=== PATIENT | male | born 1960 | race Two or more races ===

== ENCOUNTER 2020-04-13 06:17 | Outpatient (REF) | payer BC, SELFPAY ==
[2020-04-13 11:33] LABS: Hematocrit 44.1 % (42-52); Hemoglobin 14.5 g/dl (14.0-18.0); Mean Corpuscular HGB Conc 32.9 g/dl (31.0-36.0); Mean Corpuscular Hemoglobin 31.7 pg (27.0-33.0); Mean Corpuscular Volume 96.5 fL (80-98); Mean Platelet Volume 10.7 fL (9.4-12.4); Platelet Count 237 X10*3/uL (160-400); Red Blood Count 4.57 X10*6/uL (4.60-5.80); Red Cell Distribution Width 12.3 % (11.0-16.0); White Blood Count 6.3 X10*3/uL (4.8-10.8)
[2020-04-13 11:40] LABS: Glucose Urine UA NEG (NEG); Leukocyte Esterase Urine NEG (NEG); Nitrite Urine NEG (NEG); Specific Gravity - Urine 1.025 (1.005-1.025); Urine Blood NEG (NEG); Urine Ketones NEG (NEG); Urine Protein NEG (NEG-TRACE)
[2020-04-13 11:50] LABS: Alanine Aminotransferase 11 U/L (0-40); Albumin Level 4.4 g/dL (3.5-5.0); Alkaline Phosphatase 62 U/L (39-117); Anion Gap 12 (12-20); Aspartate Amino Transferase 27 U/L (5-37); Bilirubin Total 0.8 mg/dL (0.0-1.0); Blood Urea Nitrogen 18 mg/dL (9-16); Calcium 8.6 mg/dL (8.4-10.2); Carbon Dioxide 30 mmol/L (22-29); Chloride 103 mmol/L (96-108); Cholesterol 224 mg/dL; Estimated Glomerular Filt Rate > 60; Glucose Fasting 105 mg/dL (60-99); HDL Cholesterol 53 mg/dL; LDL Cholesterol Calculated 157 mg/dl; Potassium 4.7 mmol/L (3.3-5.1); Sodium 140 mmol/L (135-145); Total Protein 7.3 g/dL (6.5-8.0); Triglycerides 73 mg/dL
[2020-04-13 11:57] LABS: Appearance Urine CLEAR; Color Urine YELLOW
[2020-04-13 12:06] LABS: RBC Urine 0 /HPF (0); WBC Urine 0 /HPF (0-4)
[2020-04-13 12:12] LABS: Prostate Specific Antigen Scr 0.56 ng/mL (<0.05-4.0)
== END 2020-04-13 06:18 | disposition home or self-care (01) ==
LOC: HO.HMGCLDS 06:17
PROVIDERS: PCP Internal Medicine; Visit Provider Internal Medicine
DX: Z00.00 Encounter for general adult medical examination without abnormal findings (principal); Z13.220 Encounter for screening for lipoid disorders; Z12.5 Encounter for screening for malignant neoplasm of prostate
CPT/HCPCS: 36415; 80053; 80061; 81001; 84153; 85027

== ENCOUNTER → 2021-03-08 09:00 | Outpatient (BNVA) | payer OTHER, SELFPAY | PROVIDERS: PCP Internal Medicine; Referring Provider Internal Medicine; Visit Provider Physician Assistant ==

== ENCOUNTER 2021-06-28 11:18 | Day surgery (SDC) | payer OTHER, SELFPAY ==
--- NOTE | 2021-06-27 10:29 | HO.ANESPROP2 ---
Documented by User: Ella Lr NP 06/27/21 10:30 HPI - Anesthesia Eval Consult details Narrative: 60yo M for Colonoscopy [facility] Active Problems Active Problems: All Active Problems (Updated 05/06/21 @ 12:25 by Rebecca Benson, RN) Family history of colon cancer requiring screening colonoscopy (Acute) Acid reflux (Acute) Sleep apnea (Acute) Hyperlipidemia (Acute) Normal colonoscopy (Acute) Annual physical exam (Acute) Past Medical History Medical History (Updated 05/06/21 @ 12:25 by Rebecca Benson, RN) Hyperlipidemia Normal colonoscopy Sleep apnea Family History Family History Father Liver cancer Colon cancer Mother Alzheimer's dementia Brother History of CVA (cerebrovascular accident) Brother No problems noted. Brother No problems noted. Brother No problems noted. Sister No problems noted. Son No problems noted. Son No problems noted. Son No problems noted. Daughter No problems noted. Surgical History Surgical History (Updated 05/06/21 @ 12:25 by Rebecca Benson RN) History of knee surgery Hx of colonoscopy Social History Social History Housing: House Alcohol intake: current Alcohol intake frequency: holidays/special occasions only Patient Tobacco Use Status: Never used Tobacco e-Cigarette/Vaping Use: Never Used Second Hand Smoke Exposure: No Use of substances other than those prescribed or required for medical reasons: No Are you DNR?: No Advance Directives: No Advance Directives Information Provided: Yes Advance Directives on File: No Current occupational status: employed Meds Allergies Allergy/AdvReac Type Severity Reaction Status Date / Time No Known Allergies Allergy Verified 06/22/21 15:45 Exam Exam Date and Time: June 27, 2021 1030 Assessment and Plan Assessment Anesthesia Assessment: Chart Reviewed Documented by User: Robert Cortez MD 06/28/21 14:09 [facility] Past Medical History Medical History (Updated 05/06/21 @ 12:25 by Rebecca Benson RN) Hyperlipidemia Normal colonoscopy Sleep apnea Family History Family History Father Liver cancer Colon cancer Mother Alzheimer's dementia Brother History of CVA (cerebrovascular accident) Brother No problems noted. Brother No problems noted. Brother No problems noted. Sister No problems noted. Son No problems noted. Son No problems noted. Son No problems noted. Daughter No problems noted. Family history of problems with anesthesia: No Surgical History Surgical History (Updated 05/06/21 @ 12:25 by Rebecca Benson RN) History of knee surgery Hx of colonoscopy Social History Social History Housing: House Alcohol intake: current Alcohol intake frequency: holidays/special occasions only Patient Tobacco Use Status: Never used Tobacco e-Cigarette/Vaping Use: Never Used Second Hand Smoke Exposure: No Use of substances other than those prescribed or required for medical reasons: No Are you DNR?: No Advance Directives: No Advance Directives Information Provided: Yes Advance Directives on File: No Current occupational status: employed Meds Allergies Allergy/AdvReac Type Severity Reaction Status Date / Time No Known Allergies Allergy Verified 06/22/21 15:45 Exam Airway Mallampati Class: II TM Dist: >3cm Neck ROM: Full Loose/Missing/Broken Teeth: Yes Assessment and Plan Assessment Anesthesia Assessment: Anesthesia Plan Discussed Final Anesthetic Review Family History of Problems with Anesthesia: No NPO: Yes ASA Class: I Final Preanesthetic Review: No Changes in Pt Med Stat, Meds/Allgs Chart Reviewed, Consent Obtained/Reviewed and Anes Risks/Benef Reviewed Patient Risk: Low Procedure Risk: Low Anesthetic Plan Anesthetic Plan: MAC: Disposition: Standard PACU
[2021-06-28 11:34] VITALS: BMI 28.0
--- NOTE | 2021-06-28 11:44 | MHC.SHP ---
Pre-Procedural Eval Section A Date of Service: 06/28/21 Section B Chief Complaint: Family history of malignant neoplasm Details of Present Illness: dad with CRC Relevant Family History (Specify if Yes): Yes Relevant Social History: None Present Medications: see Short Stay Collaborative assessment Medical History: Significant History (Hyperlipidemia Normal colonoscopy Sleep apnea) History of Previous Operations: No relevant previous surgery Allergies: Allergies Allergy/AdvReac Type Severity Reaction Status Date / Time No Known Allergies Allergy Verified 06/22/21 15:45 Review of Systems Sugical H&P ROS: Negative: Constitution, Cardiovascular, Respiratory, Neurological, Psychiatric, Hem-Onc, Allergic/Immunologic, Gastrointestinal, Genitourinary, Musculoskeletal, Integumentary, Endocrine and Eyes/Ears/Nose/Throat Exam Surgical H&P Exam: Normal: HEENT, Normal: Heart, Normal: Lungs, Normal: Extremities, Normal: Abdomen, Normal: Skin and Normal: Neurological Plan Diagnosis/Plan: Unchanged I have reviewed the history and physical and performed a pertinent physical examination on my patient. No changes have occurred unless specified.
[2021-06-28 11:56] VITALS: BP 138/82; PULSE 73; RESP 16; TEMP 36.4; O2SAT 96
[2021-06-28] MEDS: Lactated Ringers 1,000 ML 100 ML IVCONT (11:57)
--- NOTE | 2021-06-28 13:14 | PM.OP ---
Brief Operative Note Date of Service: 06/28/21 Pre-op diagnosis: colon screening, high risk, Fh of CRC Post-op diagnosis: same Procedure: see op note Surgeon: Oneal Sterling MD Anesthesia: MAC Was an Junior Recruiter used for this Procedure?: No Estimated blood loss (mL): 0 Condition: stable Disposition: PACU
--- NOTE | 2021-06-28 13:16 | W.PM.OPN ---
Operative Note Operative Note Date of Service: 06/28/21 Narrative: Operative Information Procedure Description: Colonoscopy Indication: colon screening, high risk, Fh of CRC Anesthesia: MAC COLONOSCOPY Instrument: Olympus variable stiffness pediatric scope 190L Colonoscopy Monitoring: Vital signs and clinical assessment, continuous EKG monitoring, Pulse oximetry, Carbon Dioxide monitoring and blood pressure monitoring were done throughout the procedure. Colon withdrawal time was 11 minutes. Procedure: The patient was placed in the left lateral decubitis position and pre-procedure medications were administered. After a digital rectal examination of the ano-rectum, the video colonoscope was inserted into the rectum and advanced through the colon to the cecum/TI. The colonoscope was slowly withdrawn in a retrograde panoramic fashion and the colon mucosa was carefully examined including a retroflexed view of the rectum. Findings and interventions are described below. Procedure Difficulty: easy Findings: Terminal Ileum-normal right sided retroflexion- normal Cecum:normal Ascending Colon: normal Transverse Colon -normal Descending Colon:normal Sigmoid Colon: normal Rectum: Retroflexion with small internal hemorrhoids, grade I Anorectum - normal Colon preparation: Andrews Bowel Preparation Scale Right colon; 2 Transverse colon: 2 Left colon; 2 (0 = Unprepared colon segment with mucosa not seen due to solid stool that cannot be cleared. 1 = Portion of mucosa of the colon segment seen, but other areas of the colon segment not well seen due to staining, residual stool and/or opaque liquid. 2 = Minor amount of residual staining, small fragments of stool and/or opaque liquid, but mucosa of colon segment seen well. 3 = Entire mucosa of colon segment seen well with no residual staining, small fragments of stool or opaque liquid) Impression and Post Procedure Diagnosis: internal hemorrhoids Plan: High fiber diet leaflet Avoid straining at stool, epsom salts and sitz bath, anusol supps or cream Repeat Colonoscopy in 5 years due to FH of CRC or earlier if clinically indicated Above findings were reviewed with the patient and relevant handouts were provided if indicated.
[2021-06-28 13:22] VITALS: BP 110/71; PULSE 63; RESP 16; TEMP 36.1; O2SAT 95
[2021-06-28 13:37] VITALS: BP 119/85; PULSE 70; RESP 16; TEMP 36.4; O2SAT 96
== END 2021-06-28 15:18 | disposition home or self-care (01) ==
PROVIDERS: PCP Internal Medicine; Visit Provider Internal Medicine Gastroenterology
PROC: 0DJD8ZZ Inspection of Lower Intestinal Tract, Via Natural or Artificial Opening Endoscopic (ICD-10-PCS; CPT 45378; principal; 2021-06-28 12:50)
DX: Z12.11 Encounter for screening for malignant neoplasm of colon (principal); Z80.0 Family history of malignant neoplasm of digestive organs; K64.0 First degree hemorrhoids; K21.9 Gastro-esophageal reflux disease without esophagitis; E78.5 Hyperlipidemia, unspecified; G47.30 Sleep apnea, unspecified
CPT/HCPCS: 45378

== ENCOUNTER 2021-07-01 06:02 | Outpatient (REF) | payer OTHER, SELFPAY ==
[2021-07-01 11:14] LABS: Hematocrit 43.7 % (42.0-52.0); Hemoglobin 14.2 g/dl (14.0-18.0); Mean Corpuscular HGB Conc 32.5 g/dl (31.0-36.0); Mean Corpuscular Hemoglobin 31.4 pg (27.0-33.0); Mean Corpuscular Volume 96.7 fL (80.0-98.0); Mean Platelet Volume 10.6 fL (9.4-12.4); Platelet Count 218 X10*3/uL (160-400); Red Blood Count 4.52 X10*6/uL (4.60-5.80); Red Cell Distribution Width 12.4 % (11.0-16.0); White Blood Count 6.6 X10*3/uL (4.8-10.8)
[2021-07-01 11:37] LABS: Appearance Urine HAZY; Color Urine YELLOW; Glucose Urine UA NEG (NEG); Leukocyte Esterase Urine NEG (NEG); Nitrite Urine NEG (NEG); Specific Gravity - Urine 1.025 (1.005-1.025); Urine Blood TRACE (NEG); Urine Ketones NEG (NEG); Urine Protein NEG (NEG-TRACE)
[2021-07-01 11:49] LABS: Prostate Specific Antigen Scr 0.45 ng/mL (<0.05-4.0)
[2021-07-01 11:50] LABS: Alanine Aminotransferase 10 U/L (0-40); Albumin Level 4.2 g/dL (3.5-5.0); Alkaline Phosphatase 57 U/L (39-117); Anion Gap 11 (12-20); Aspartate Amino Transferase 21 U/L (5-37); Bilirubin Total 0.8 mg/dL (0.0-1.0); Blood Urea Nitrogen 19 mg/dL (9-16); Calcium 9.5 mg/dL (8.4-10.2); Carbon Dioxide 30 mmol/L (22-29); Chloride 103 mmol/L (96-108); Cholesterol 230 mg/dL; Estimated Glomerular Filt Rate > 60; Glucose Fasting 109 mg/dL (60-99); HDL Cholesterol 51 mg/dL; LDL Cholesterol Calculated 157 mg/dl; Potassium 4.6 mmol/L (3.3-5.1); Sodium 139 mmol/L (135-145); Total Protein 7.3 g/dL (6.5-8.0); Triglycerides 113 mg/dL
[2021-07-01 12:20] LABS: Squamous Epithelial Cell Urine TRACE /LPF; WBC Urine 0 /HPF (0-4)
== END 2021-07-01 06:03 | disposition home or self-care (01) ==
LOC: HO.HMGCLDS 06:02
PROVIDERS: Visit Provider Internal Medicine
DX: Z00.00 Encounter for general adult medical examination without abnormal findings (principal); Z12.5 Encounter for screening for malignant neoplasm of prostate; E78.5 Hyperlipidemia, unspecified
CPT/HCPCS: 36415; 80053; 80061; 81001; 84153; 85027

== ENCOUNTER → 2021-07-13 14:27 | Outpatient (BNVA) | payer OTHER, SELFPAY | PROVIDERS: PCP Internal Medicine; Visit Provider Physician Assistant | DX: Z13.89 Encounter for screening for other disorder (principal) ==

== ENCOUNTER 2022-04-27 09:48 | Outpatient (REF) | payer OTHER, SELFPAY ==
[2022-04-27 11:06] LABS: MANUAL DIFF FLAG NO
[2022-04-27 11:19] LABS: Basophils Absolute Auto 0.1 X10*3/uL (0.0-0.2); Eosinophils Absolute Auto 0.1 X10*3/uL (0.0-0.4); Eosinophils Percent Auto 1.6 % (0-4); Hematocrit 45.6 % (42.0-52.0); Imm Gran Abs Auto 0.05 X10*3/uL (0.00-0.03); Imm Gran Pct Auto 0.8 % (0.0-0.4); Lymphocytes Absolute Auto 2.4 X10*3/uL (1.2-4.9); Lymphocytes Percent Auto 37.4 % (20-40); Mean Corpuscular HGB Conc 32.9 g/dl (31.0-36.0); Mean Corpuscular Hemoglobin 31.4 pg (27.0-33.0); Mean Corpuscular Volume 95.6 fL (80.0-98.0); Monocytes Absolute Auto 0.7 X10*3/uL (0.1-1.2); Monocytes Percent Auto 10.7 % (2-11); Neutrophils Absolute Auto 3.1 x10*3/uL (2.0-8.3); Neutrophils Percent Auto 48.5 % (45-73); Platelet Count 247 X10*3/uL (160-400); Red Blood Count 4.77 X10*6/uL (4.60-5.80); White Blood Count 6.3 X10*3/uL (4.8-10.8)
[2022-04-27 11:38] LABS: Appearance Urine Clear; Color Urine Yellow; Glucose Urine UA Negative (Negative); Leukocyte Esterase Urine Negative (Negative); Nitrite Urine Negative (Negative); Urine Blood Negative (Negative); Urine Ketones Negative (Negative); Urine Protein Negative (Neg-Trace)
[2022-04-27 11:43] LABS: Bacteria Urine None Seen (None Seen); Hyaline Casts Urine 0-2 /LPF (0-2); RBC Urine 0-2 /HPF (0-2); Squamous Epithelial Cell Urine 0-2 /HPF (0-2); WBC Urine 0-5 /HPF (0-5)
[2022-04-27 12:05] LABS: Alanine Aminotransferase 12 U/L (0-40); Albumin Level 4.5 g/dL (3.5-5.0); Alkaline Phosphatase 65 U/L (39-117); Anion Gap 15 (12-20); Aspartate Amino Transferase 22 U/L (5-37); Bilirubin Total 1.3 mg/dL (0.0-1.0); Blood Urea Nitrogen 14 mg/dL (9-16); Calcium 9.5 mg/dL (8.4-10.2); Carbon Dioxide 27 mmol/L (22-29); Chloride 103 mmol/L (96-108); Cholesterol 275 mg/dL; Estimated Glomerular Filt Rate 56; Glucose Fasting 107 mg/dL (60-99); HDL Cholesterol 55 mg/dL; LDL Cholesterol Calculated 195 mg/dl; Potassium 4.9 mmol/L (3.3-5.1); Sodium 140 mmol/L (135-145); Total Protein 7.4 g/dL (6.5-8.0); Triglycerides 127 mg/dL
[2022-04-27 12:46] LABS: PSA,Total (Free>4and<10) 0.61 ng/mL (0.00-4.00); TSH reflex Free T4 1.17 uIU/mL (0.32-4.0)
== END 2022-04-27 09:49 | disposition home or self-care (01) ==
LOC: HO.HMGCLDS 09:48
PROVIDERS: PCP Internal Medicine; Visit Provider Internal Medicine
DX: Z00.00 Encounter for general adult medical examination without abnormal findings (principal); Z12.5 Encounter for screening for malignant neoplasm of prostate; E78.5 Hyperlipidemia, unspecified
CPT/HCPCS: 36415; 80053; 80061; 81001; 84153; 84443; 85025

== ENCOUNTER 2022-07-25 06:01 | Outpatient (REF) | payer OTHER, SELFPAY ==
[2022-07-25 11:47] LABS: Cholesterol 183 mg/dL; HDL Cholesterol 51 mg/dL; LDL Cholesterol Calculated 106 mg/dl; Triglycerides 134 mg/dL
== END 2022-07-25 06:02 | disposition home or self-care (01) ==
LOC: HO.HMGCLDS 06:01
PROVIDERS: PCP Internal Medicine; Visit Provider Internal Medicine
DX: E78.5 Hyperlipidemia, unspecified (principal)
CPT/HCPCS: 36415; 80061

== ENCOUNTER 2023-08-23 08:45 | Outpatient (AMB) | payer BC, SELFPAY ==
--- NOTE | 2023-08-23 08:52 | AM.OFFWIN_ITS ---
Intake Vital Signs 08/23/23 08:53 Height 5 ft 9 in Weight 187 lb BMI 27.6 BP 150/82 H Blood Pressure Location Rt brachial Position Sitting Pulse 64 Pulse Source Pulse Oximeter Temp 98.1 F Temp Source Temporal Artery Scan Pulse Oximetry (%) 95 Intake Visit Reasons: EP Poison Kelly Intake Note: pt is here for poison kelly on right side and arm and face Patient Tobacco Use Status: Never used Tobacco Allergies No Known Allergies Allergy (Verified 08/23/23 08:55) Do you need a note to return to daycare/school/sports/work: No HPI EP Poison Kelly HPI Details This note is constructed using voice recognition software. While every effort has been made to ensure accuracy, carpenters helper errors may have been included. 63-year-old male patient presents with 3 day history rash to his right forearm, right rib area, and upper lip after doing yd work. He notes that he did not realize he poison kelly in his yd, but realizes it after he had exposure. He has not tried anything at home, has managed to avoid the itching, however the itch is becoming unbearable. He has no pain, no fever, no chills. There is no discharge from the area. It does seem to be spreading over his body. [facility] Medical History (Updated 08/17/22 @ 10:59 by Brandie Huang MD) Sleep apnea Hyperlipidemia Normal colonoscopy Surgical History Hx of colonoscopy History of knee surgery Family History Father Liver cancer Colon cancer Mother Alzheimer's dementia Brother History of CVA (cerebrovascular accident) Brother No problems noted. Brother No problems noted. Brother No problems noted. Sister No problems noted. Son No problems noted. Son No problems noted. Son No problems noted. Daughter No problems noted. Social History Housing: House Alcohol intake: current Alcohol intake frequency: holidays/special occasions only Patient Tobacco Use Status: Never used Tobacco e-Cigarette/Vaping Use: Never Used Second Hand Smoke Exposure: No Current occupational status: employed Cognitive needs: No Hearing needs: No Vision needs: Yes Review of Systems Const All systems reviewed & are unremarkable except as noted in HPI and below Physical Exam Vital Signs: Last Vital Signs Temp 98.1 F 08/23/23 08:53 Pulse 64 08/23/23 08:53 BP 150/82 H 08/23/23 08:53 Pulse Ox 95 08/23/23 08:53 BMI result Body Mass Index 27.6 Const General: cooperative, healthy appearing, comfortable and no acute distress Orientation/consciousness: patient oriented x3 Limitations: no limitations HEENT Head: Yes normal to inspection Eyes General: appearance normal, both eyes and all related structures Resp Effort & Inspection: normal respiratory effort and able to speak in complete sentences Skin Other: A streaky, linear maculopapular rash with crusted lesions on right forearm, right ribs, and upper lip. Neuro General: patient oriented x3 Assessment & Plan Assessment & Plan (1) Poison kelly dermatitis: Code(s): L23.7 - Allergic contact dermatitis due to plants, except food Plan: Advised use of [id number] wash after all yd work to avoid repeat events. Given widespread irritation, steroid taper provided for 10 days for symptomatic relief. Advised monitoring for signs of secondary bacterial infection including discharge, warmth, fever. Follow-up as needed with worsening or failure to resolve. Plan See above for full details and plan. Medications: New prednisone see taper instructions: 5 pills daily for 2 days, then 4 pills daily for 2 days, then 3 pills daily for 2 days, then 2 pills daily for 2 days, then 1 pill daily for 2 days. 10 mg PO DIRECTED 30 tabs 0RF Coding Level of Care Code Est Pt Level 4 (07656) Diagnoses Poison kelly dermatitis L23.7
[2023-08-23 08:53] VITALS: BP 150/82; PULSE 64; TEMP 36.7; O2SAT 95; BMI 27.6
== END 2023-08-23 09:15 | disposition home or self-care (01) ==
PROVIDERS: PCP Internal Medicine; Visit Provider Registered Nurse
DX: L23.7 Allergic contact dermatitis due to plants, except food (principal)
CPT/HCPCS: 99213

== ENCOUNTER 2023-12-13 07:58 | Outpatient (REF) | payer BC, SELFPAY | END 2023-12-13 07:59 | disposition home or self-care (01) | LOC: HO.HMGCX 07:58 | PROVIDERS: PCP Internal Medicine; Visit Provider Internal Medicine | DX: M25.561 Pain in right knee (principal); M25.562 Pain in left knee | CPT/HCPCS: 73565; 96127 ==

== ENCOUNTER 2023-12-13 07:58 | Outpatient (AMB) | payer BC, SELFPAY ==
[2023-12-13 08:10] VITALS: BP 120/80; PULSE 65; O2SAT 96; BMI 28.1
--- NOTE | 2023-12-13 08:10 | A.OFFPC_ITS ---
Vital Signs 12/13/23 08:10 Height 5 ft 9 in Weight 190 lb BMI 28.1 BP 120/80 Blood Pressure Location Lt brachial Position Sitting Pulse 65 Pulse Source Pulse Oximeter Pulse Oximetry (%) 96 Oxygen Delivery Method Room Air Intake Visit Reasons: PE, discuss Ortho referral for knee Intake Note: Pt is here today for PE. Allergies No Known Allergies Allergy (Verified 12/13/23 08:12) Medication List - Last Reconciled 12/13/23 by Brandie Huang MD rosuvastatin 5 mg PO DAILY vardenafil 20 mg PO DAILY Tobacco use date assessed: 12/13/23 Dental Screening Dental Screen Date: 08/17/22 HPI PE, discuss Ortho referral for knee HPI Details Patient presents for physical. He complains of bilateral knee pain and stiffness worse when walking up and down the stairs at work. He denies pain at rest or joint swelling. He had a right knee meniscus surgery [address] Inman [facility] Medical History (Updated 12/13/23 @ 09:32 by Brandie Huang MD) Hyperlipidemia Normal colonoscopy Surgical History Hx of colonoscopy History of knee surgery Family History Father Liver cancer Colon cancer Mother Alzheimer's dementia Brother History of CVA (cerebrovascular accident) Brother No problems noted. Brother No problems noted. Brother No problems noted. Sister No problems noted. Son No problems noted. Son No problems noted. Son No problems noted. Daughter No problems noted. Social History Housing: House Alcohol intake: current Alcohol intake frequency: holidays/special occasions only Patient Tobacco Use Status: Never used Tobacco e-Cigarette/Vaping Use: Never Used Second Hand Smoke Exposure: No Current occupational status: employed Cognitive needs: No Hearing needs: No Vision needs: Yes Questionnaire PHQ-9 Over the last 2 weeks, how often have you been bothered by any of the following problems? 1. Little interest or pleasure in doing things: not at all 2. Feeling down, depressed, or hopeless: not at all 3. Trouble falling or staying asleep, or sleeping too much: not at all 4. Feeling tired or having little energy: not at all 5. Poor appetite or overeating: not at all 6. Feeling bad about yourself - or that you are a failure or have let yourself or your family down: not at all 7. Trouble concentrating on things, such as reading the newspaper or watching television: not at all 8. Moving or speaking so slowly that other people could have noticed. Or the opposite - being so fidgety or restless that you have been moving around a lot more than usual: not at all 9. Thoughts that you would be better off or of hurting yourself in some way: not at all Total score: 0 Depression Screening Interpretation: Negative Depression Screening Done: Yes 22818 - PHQ-9 Billing: Yes Source: Developed by Drs. Armando Jimenes, Abigail Faye, [place] and colleagues, with an educational marjorie from [employer]. Thrive Questionnaire Date Thrive assessed: 12/13/23 I am a: Patient What is your living situation today?: I have a steady place to live Within the past 12 months, did the food you bought not last and you didn't have the money to get more?: Never true Within the past 12 months, did you worry whether your food would run out before you got money to buy more?: Never true Do you have trouble paying for medicines?: No Do you have trouble getting transportation to medical appointments?: No Do you have trouble paying your heating and electricity bill?: No Do you have trouble taking care of your child, family member or friend?: No Do you have trouble with day-to-day activities such as bathing, preparing meals, shopping, managing finances, etc.?: No Are you currently unemployed and looking for a job?: No Are you interested in more education?: No Please select the resources that you would like help with: None THRIVE Score: 0 AUDIT C Alcohol Use Questionnaire (AUDIT-C) 1. How often do you have a drink containing alcohol?: Monthly or less 2. How many drinks containing alcohol do you have on a typical day when you are drinking?: 1 or 2 3. How often do you have six or more drinks on one occasion?: Never Total Score: 1 RICK-7 AMB Questionnaire RICK-7 Date RICK - 7 assessed: 12/13/23 Feeling nervous, anxious, or on edge: 0 = Not at all Not being able to stop or control worryin = Not at all Worrying too much about different things: 0 = Not at all Trouble relaxin = Not at all Being so restless that it is hard to sit still: 0 = Not at all Becoming easily annoyed or irritable: 0 = Not at all Feeling afraid as if something awful might happen: 0 = Not at all Total RICK-7 score (0-4 normal; 5-9 mild; 10-14 moderate; 15-21 severe): 0 Source: Developed by Drs. Armando Jimenes, Abigail Faye, [place] and colleagues, with an educational marjorie from [employer]. RICK-7 Assessment Billing RICK-7 Assessment Tool: RICK-7 Assessment 71315 Review of Systems Const All systems reviewed & are unremarkable except as noted in HPI and below Eyes Reports no additional complaints ENT Reports no additional complaints Card Reports no additional complaints Resp Reports no additional complaints GI Reports no additional complaints Reports no additional complaints Physical exam (Primary Care) Vital Signs: Last Vital Signs Pulse 65 12/13/23 08:10 BP 120/80 12/13/23 08:10 Pulse Ox 96 12/13/23 08:10 Oxygen Delivery Method Room Air 12/13/23 08:10 BMI result Body Mass Index 28.1 Tobacco/Smoking Status: Tobacco use Status Tobacco use date assessed 12/13/23 12/13/23 08:15 Patient Tobacco Use Status Never used Tobacco 12/13/23 08:15 e-Cigarette/Vaping Use Never Used 12/13/23 08:15 PHQ-9: PHQ-9 Score PHQ-9: Total score 0 12/13/23 08:15 Depression Screening Interpretation: Negative Thrive Assessment: Date of Thrive Assessment Date Thrive assessed 12/13/23 12/13/23 08:15 Const General: no acute distress HENMT Head: Yes normal to inspection Face and sinus: Yes normal facial exam Eyes General: appearance normal, both eyes and all related structures Neck Neck: Yes no lymphadenopathy and Yes supple Resp Effort & Inspection: normal respiratory effort Auscultation: clear to auscultation bilaterally Cardio Rhythm: regular rhythm Heart sounds: S1 normal heart sound present and S2 normal heart sound present GI Inspection: Yes normal to inspection Palpation (GI): Soft to palpation Percussion: Yes normal to percussion Auscultation: normal bowel sounds Extrem Other: slightly decreased range of motion in both knees no joint tenderness erythema or warmth General: Yes no clubbing, cyanosis or edema Coding Level of Care Code Est Pt Prev Care 40-64y(48198) Diagnoses Right knee pain M25.561 Left knee pain M25.562 Hyperlipidemia E78.5 Annual physical exam Z00.00 Additional Codes RICK-7 Assessment Billing - RICK-7 Assessment Tool: RICK-7 Assessment 82005 ([id number]) Assessment & Plan Assessment & Plan (1) Right knee pain: Code(s): M25.561 - Pain in right knee Category: Medical Plan: Obtain x-rays of both knees and referred to orthopedic surgeon Dr. Inman (2) Left knee pain: Code(s): M25.562 - Pain in left knee Category: Medical Plan: as above (3) Hyperlipidemia: Code(s): E78.5 - Hyperlipidemia, unspecified Category: Medical Plan: Continue statin patient will return for fasting blood work (4) Annual physical exam: Code(s): Z00.00 - Encounter for general adult medical examination without abnormal find ings Category: Medical Plan: Well-balanced diet regular physical activity discussed with the patient he is up-to-date with colonoscopy Orders: Orders Comprehensive [place]. Panel Fast Today E78.5 - Hyperlipidemia, unspecified, Z00.00 - Encounter for general adult medical examination without abnormal findings PSA,Total (Free>4and<10) 1 Year E78.5 - Hyperlipidemia, unspecified, Z00.00 - Encounter for general adult medical examination without abnormal findings UA w Microscopic 1 Year E78.5 - Hyperlipidemia, unspecified, Z00.00 - Encounter for general adult medical examination without abnormal findings XR knee standing BI Today M25.561 - Pain in right knee, M25.562 - Pain in left knee Lipid Panel Today E78.5 - Hyperlipidemia, unspecified, Z00.00 - Encounter for general adult medical examination without abnormal findings Complete Blood Count Auto Diff Today E78.5 - Hyperlipidemia, unspecified, Z00.00 - Encounter for general adult medical examination without abnormal findings Comprehensive [place]. Panel Fast 1 Year E78.5 - Hyperlipidemia, unspecified, Z00.00 - Encounter for general adult medical examination without abnormal findings Lipid Panel 1 Year E78.5 - Hyperlipidemia, unspecified, Z00.00 - Encounter for general adult medical examination without abnormal findings Complete Blood Count Auto Diff 1 Year E78.5 - Hyperlipidemia, unspecified, Z00.00 - Encounter for general adult medical examination without abnormal findings Referrals Orthopedics Referral M25.561 - Pain in right knee, M25.562 - Pain in left knee Medications: Refilled rosuvastatin 5 mg PO DAILY 90 tabs 1RF rosuvastatin 5 mg PO DAILY 90 tabs 3RF
== END 2023-12-13 09:36 | disposition home or self-care (01) ==
LOC: HO.HMCC 07:58
PROVIDERS: PCP Internal Medicine; Visit Provider Internal Medicine
DX: M25.561 Pain in right knee (principal); M25.562 Pain in left knee; E78.5 Hyperlipidemia, unspecified; Z00.00 Encounter for general adult medical examination without abnormal findings

== ENCOUNTER 2024-01-29 08:57 | Outpatient (AMB) | payer BC, SELFPAY ==
--- NOTE | 2024-01-29 09:10 | A.OFFVIS_ITS ---
Vital Signs 01/29/24 09:11 Height 5 ft Weight 190 lb BMI 37.1 Intake Visit Reasons: Bilateral knee pains and giving way Intake Note: Kyle is a 63 year old male who presents with complaints of progressively worsening bilateral knee pains and giving way, right greater than left. The patient states that he underwent right knee anterior cruciate ligament surgery approximately 20 years ago [address] Inman in [place]. The patient states that prior to that surgery he injured his right knee while playing soccer. The patient states that he injured both of his knees approximately 1 year ago. He twisted his knees and had acute onset of pain. He states that his left knee pain is tolerable to him at this time. He has done physical therapy which aggravated his pain. He states that his right knee will give out several times per day. He has tried Tylenol and anti-inflammatory medicines which gave him minimal relief. The patient states that he has difficulty going up and down stairs because of his pain and instability. He has had injections in the past which gave him no relief. Allergies No Known Allergies Allergy (Verified 01/29/24 09:11) Medication List - Last Reconciled 01/29/24 by Scar Welch MD rosuvastatin 5 mg PO DAILY vardenafil 20 mg PO DAILY [facility] Medical History (Updated 01/29/24 @ 09:35 by Scar Welch MD) Hyperlipidemia Normal colonoscopy Surgical History Hx of colonoscopy History of knee surgery Family History Father Liver cancer Colon cancer Mother Alzheimer's dementia Brother History of CVA (cerebrovascular accident) Brother No problems noted. Brother No problems noted. Brother No problems noted. Sister No problems noted. Son No problems noted. Son No problems noted. Son No problems noted. Daughter No problems noted. Social History Housing: House Alcohol intake: current Alcohol intake frequency: holidays/special occasions only Patient Tobacco Use Status: Never used Tobacco e-Cigarette/Vaping Use: Never Used Second Hand Smoke Exposure: No Current occupational status: employed Cognitive needs: No Hearing needs: No Vision needs: Yes Physical Exam Vital Signs: BMI result Body Mass Index 37.1 Const Other: Well-nourished well-developed very friendly male awake alert and oriented x3 in no acute distress Extrem Other: Bilateral lower extremity examination shows good capillary refill, no skin lesions noted, normal sensation light touch Bilateral knee examination shows minimal effusions, minimal crepitus with range of motion, tenderness along his medial joint lines, positive Mehreen's test, positive Maricruz's test on the right side Results Reviewed Results Reviewed: X-rays of the patient's bilateral knee show mild diffuse joint space narrowing, no acute bony abnormalities Assessment & Plan Assessment & Plan (1) Tear of medial meniscus of right knee: Code(s): S83.241A - Other tear of medial meniscus, current injury, right knee, initial encounter Category: Medical Plan Mr. Miranda presents with progressively worsening bilateral knee pains and mechanical symptoms, right greater than left, possibly due to medial meniscus tearing and possible recurrent right knee anterior cruciate ligament tear. Thus, I will send the patient for an MRI of his right knee for further evalu ation. I will see him back once the MRI is completed to discuss the findings and treatment options. Feel free to call me at any time should questions regarding his orthopedic management arise. I spent 22 minutes in reviewing the patient's records and imaging studies, seeing the patient and documenting in the medical record. Orders: Orders XR knee LT 2V 01/29/24 M25.562 - Pain in left knee XR knee RT 2V 01/29/24 M25.561 - Pain in right knee MR knee RT wo con 01/29/24 S83.241A - Other tear of medial meniscus, current injury, right knee, initial encounter Coding Level of Care Code New Pt Level 3 (10402) Complex EM visit Add On G2211 Diagnoses Tear of medial meniscus of right knee S83.241A
[2024-01-29 09:11] VITALS: BMI 37.1
== END 2024-01-29 09:34 | disposition home or self-care (01) ==
PROVIDERS: PCP Internal Medicine; Visit Provider Orthopaedic Surgery
DX: S83.241A Other tear of medial meniscus, current injury, right knee, initial encounter (principal)
CPT/HCPCS: 99203

== ENCOUNTER → 2024-01-29 09:06 | Outpatient (BNV) | payer BC, SELFPAY | PROVIDERS: Visit Provider Radiology Diagnostic Radiology | DX: M17.0 Bilateral primary osteoarthritis of knee (principal) | CPT/HCPCS: 73560 ==

== ENCOUNTER 2024-01-29 09:42 | Outpatient (REF) | payer BC, SELFPAY ==
--- NOTE | ~2024-01-29 | XR_ITS ---
EXAMINATION: XR RIGHT KNEE CLINICAL INFORMATION: Pain in right knee M25.561. COMPARISON: XR Right knee 01/05/2017 ; Standing bilateral AP view of the knees 12/13/2023. TECHNIQUE: Two views of the right knee. FINDINGS: 2 limited views demonstrate no fracture, dislocation, or suspicious bone lesion. Grossly normal alignment allowing for 2 limited views. There has been a prior ACL repair. There is moderate tricompartmental osteoarthrosis, relatively evenly distributed throughout all 3 compartments. No evidence of joint effusion. No abnormal patellar tilt. Mild to moderate arthritis in the patellofemoral joint most notable involving the medial facet. There is abundant osteophytic spurring. There are vascular calcifications in the soft tissues. XR/XR knee RT 2V IMPRESSION: 1. Prior ACL repair. 2. At least moderate tricompartmental osteoarthrosis. 3. No acute findings present. No joint effusion. Electronically signed by: Justin Her MD 02/21/2024 08:43 AM [facility]
--- NOTE | ~2024-01-29 | XR_ITS ---
EXAMINATION: XR LEFT KNEE CLINICAL INFORMATION: Pain in left knee M25.562. COMPARISON: XR Bilateral knee 12/13/2023 TECHNIQUE: Two views of the left knee. FINDINGS: There are no fracture, dislocation, or suspicious bone lesion. Grossly normal alignment with no AP view. No evidence of joint effusion in the suprapatellar bursa. At least moderate tricompartmental osteoarthritis is present most significant in the medial compartment. Milder changes in the patellofemoral compartment most notably affecting the medial patellar facet. Preservation of patellofemoral joint space. No abnormal patellar tilt. Soft tissues demonstrate vascular calcifications. XR/XR knee LT 2V IMPRESSION: 1. No acute findings left knee allowing for 2 limited views. No evidence of joint effusion. 2. At least moderate tricompartmental osteoarthrosis with relative sparing of the patellofemoral joint. Electronically signed by: Justin Her MD 02/21/2024 08:39 AM [facility]
== END 2024-01-29 09:43 | disposition home or self-care (01) ==
LOC: HO.HOSX 09:42
PROVIDERS: Visit Provider Orthopaedic Surgery
DX: M25.562 Pain in left knee (principal); M25.561 Pain in right knee
CPT/HCPCS: 73560

== ENCOUNTER 2024-06-05 07:59 | Outpatient (AMB) | payer BC, SELFPAY ==
[2024-06-05 08:07] VITALS: BP 130/90; PULSE 60; O2SAT 95
--- NOTE | 2024-06-05 08:07 | AM.OFFWIN_ITS ---
Intake Vital Signs 06/05/24 08:07 Weight 197 lb BP 130/90 H Blood Pressure Location Lt brachial Position Sitting Pulse 60 Pulse Source Pulse Oximeter Pulse Oximetry (%) 95 Oxygen Delivery Method Room Air Intake Visit Reasons: EP-b/l shoulder pain Intake Note: Patient here for bilat shoulder pain that has been present for a couple of weeks. Patient Tobacco Use Status: Never used Tobacco Allergies No Known Allergies Allergy (Verified 06/05/24 08:13) Do you need a note to return to daycare/school/sports/work: Yes HPI HPI Comments History of Present Illness Details History of Present Illness - The patient is a 63-year-old male pres enting with bilateral shoulder pain. 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 - The pain is described as significantly affecting the patient's ability to perform overhead activities. - Ibuprofen provides transient relief, b ut the need for further pain management is evident. - Notably, the patient reports difficult y in certain movements, especially overhead lifting and other specific maneuvers. - The patient wishes to explore options for rest and evaluation of the condition due to the work-related nature of the injury. Physical Exam General: Cooperative, healthy appearing, comfortable, no acute distress and well developed Orientation: Patient oriented x3 Limitations: Limitations noted in shoulder movement Head: Normal to inspection Ears: Hearing grossly normal bilaterally Nose: Normal External nose present Face and sinus: Normal facial exam Eyes: Appearance normal, both eyes and all related structures Neck: Normal visual inspection and Yes full ROM Respiratory: Normal respiratory effort and able to speak in complete sentences. Skin: No rashes or lesions noted Neuro: Patient oriented x3 Extremities: right shoulder + empty can, left shoulder negative empty can; bilateral shoulders pain with extension, no pain with flexion, inversion or external rotation and negative lift off. Normal to inspection otherwise. [facility] Medical History (Updated 06/05/24 @ 08:27 by Antonia Jewell PA-C) Hyperlipidemia Normal colonoscopy Surgical History Hx of colonoscopy History of knee surgery Family History Father Liver cancer Colon cancer Mother Alzheimer's dementia Brother History of CVA (cerebrovascular accident) Brother No problems noted. Brother No problems noted. Brother No problems noted. Sister No problems noted. Son No problems noted. Son No problems noted. Son No problems noted. Daughter No problems noted. Social History Housing: House Alcohol intake: current Alcohol intake frequency: holidays/special occasions only Patient Tobacco Use Status: Never used Tobacco e-Cigarette/Vaping Use: Never Used Second Hand Smoke Exposure: No Current occupational status: employed Cognitive needs: No Hearing needs: No Vision needs: Yes Review of Systems Const All systems reviewed & are unremarkable except as noted in HPI and below Physical Exam Vital Signs: Last Vital Signs Pulse 60 06/05/24 08:07 BP 130/90 H 06/05/24 08:07 Pulse Ox 95 06/05/24 08:07 Oxygen Delivery Method Room Air 06/05/24 08:07 Assessment & Plan Assessment & Plan (1) Bilateral shoulder pain: Code(s): M25.511 - Pain in right shoulder; M25.512 - Pain in left shoulder Qualifiers: Chronicity: acute Qualified Code(s): M25.511 - Pain in right shoulder; M25.512 - Pain in left shoulder Plan: The patient?s bilateral shoulder pain is likely due to occupational strain. Short-term rest was recommended alongside the prescription of diclofenac to manage inflammation and pain PRN during work hours. The patient was advised to contact his employer regarding the injury and received a work excuse for two days and the weekend to allow rest and further evaluation. Ongoing monitoring of symptoms in conjunction with his primary care physician, Dr. Huang, will be important for comprehensive management. Patient was informed and verbally consented to the use of an ambient scribe for clinic note documentation during this visit. Medications: New diclofenac sodium 50 mg PO Q12H PRN 20 tabs 0RF pain Coding Level of Care Code Est Pt Level 3 (08818) Diagnoses Acute pain of both shoulders M25.511; M25.512 Chronicity: acute
== END 2024-06-05 08:31 | disposition home or self-care (01) ==
PROVIDERS: PCP Internal Medicine; Visit Provider Physician Assistant
DX: M25.511 Pain in right shoulder (principal); M25.512 Pain in left shoulder

== ENCOUNTER → 2024-06-05 07:59 | Outpatient (BNVA) | payer BC, SELFPAY | PROVIDERS: PCP Internal Medicine; Visit Provider Physician Assistant ==

== ENCOUNTER 2024-06-13 12:48 | Outpatient (AMB) | payer BC, SELFPAY ==
--- NOTE | 2024-06-13 12:51 | MHC.PC.OV ---
Vital Signs 06/13/24 12:52 Height 5 ft 9 in Weight 199 lb BMI 29.4 BP 140/86 H Blood Pressure Location Lt brachial Position Sitting Respiration 18 Pulse 81 Pulse Source Pulse Oximeter Temp 98.8 F Temp Source Oral Pulse Oximetry (%) 97 Oxygen Delivery Method Room Air Intake Visit Reasons: bilateral shoulder pain Intake Note: Pt is here today for a sick visit. Pt c/o bilateral shoulder pain for a while now and its getting worst. Allergies No Known Allergies Allergy (Verified 06/13/24 12:54) Tobacco use date assessed: 06/13/24 Dental Screening Dental Screen Date: 06/13/24 Did you have a dental visit in the last 12 months?: Yes Did you have a dental problem in the last 6 months where you did not have access to dental care?: No Was dental information given to patient?: Patient has dentist HPI bilateral shoulder pain HPI Details Pt c/o bilateral shoulder pain getting worse in the last few weeks. The pain is worse when patient is using his upper extremities at work reaching overhead and carrying heavy objects. He has been in physical therapy taking diclofenac with some relief. [facility] Medical History Hyperlipidemia Normal colonoscopy Surgical History Hx of colonoscopy History of knee surgery Family History Father Liver cancer Colon cancer Mother Alzheimer's dementia Brother History of CVA (cerebrovascular accident) Brother No problems noted. Brother No problems noted. Brother No problems noted. Sister No problems noted. Son No problems noted. Son No problems noted. Son No problems noted. Daughter No problems noted. Social History Housing: House Alcohol intake: current Alcohol intake frequency: holidays/special occasions only Patient Tobacco Use Status: Never used Tobacco e-Cigarette/Vaping Use: Never Used Second Hand Smoke Exposure: No Current occupational status: employed Cognitive needs: No Hearing needs: No Vision needs: Yes Questionnaire PHQ-9 Over the last 2 weeks, how often have you been bothered by any of the following problems? 1. Little interest or pleasure in doing things: nearly every day 2. Feeling down, depressed, or hopeless: several days 3. Trouble falling or staying asleep, or sleeping too much: several days 4. Feeling tired or having little energy: not at all 5. Poor appetite or overeating: not at all 6. Feeling bad about yourself - or that you are a failure or have let yourself or your family down: not at all 7. Trouble concentrating on things, such as reading the newspaper or watching television: not at all 8. Moving or speaking so slowly that other people could have noticed. Or the opposite - being so fidgety or restless that you have been moving around a lot more than usual: not at all 9. Thoughts that you would be better off or of hurting yourself in some way: not at all Total score: 5 Depression Screening Interpretation: Negative Depression Screening Done: Yes [id number] - PHQ-9 Billing: Yes Source: Developed by Drs. Armando Jimenes, Abigail Faye, Rancho Dorsey and colleagues, with an educational marjorie from [employer]. Thrive Questionnaire Date Thrive assessed: 06/13/24 I am a: Patient What is your living situation today?: I have a steady place to live Within the past 12 months, did the food you bought not last and you didn't have the money to get more?: Never true Within the past 12 months, did you worry whether your food would run out before you got money to buy more?: Never true Do you have trouble paying for medicines?: No Do you have trouble getting transportation to medical appointments?: No Do you have trouble paying your heating and electricity bill?: No Do you have trouble taking care of your child, family member or friend?: No Do you have trouble with day-to-day activities such as bathing, preparing meals, shopping, managing finances, etc.?: No Are you currently unemployed and looking for a job?: No Are you interested in more education?: No Please select the resources that you would like help with: None Currently or been in a relationship where the following occur: No concerns reported THRIVE Score: 0 AUDIT C Alcohol Use Questionnaire (AUDIT-C) 1. How often do you have a drink containing alcohol?: 2-3 times a week 2. How many drinks containing alcohol do you have on a typical day when you are drinking?: 1 or 2 3. How often do you have six or more drinks on one occasion?: Never Total Score: 3 RICK-7 AMB Questionnaire RICK-7 Date RICK - 7 assessed: 06/13/24 Feeling nervous, anxious, or on edge: 0 = Not at all Not being able to stop or control worryin = Not at all Worrying too much about different things: 0 = Not at all Trouble relaxin = Not at all Being so restless that it is hard to sit still: 0 = Not at all Becoming easily annoyed or irritable: 0 = Not at all Feeling afraid as if something awful might happen: 0 = Not at all Total RICK-7 score (0-4 normal; 5-9 mild; 10-14 moderate; 15-21 severe): 0 Source: Developed by Drs. Armando Jimenes, Abigail Faye, Rancho Dorsey and colleagues, with an educational marjorie from [employer]. RICK-7 Assessment Billing RICK-7 Assessment Tool: RICK-7 Assessment 20557 Review of Systems Const All systems reviewed & are unremarkable except as noted in HPI and below Eyes Reports no additional complaints ENT Reports no additional complaints Card Reports no additional complaints Resp Reports no additional complaints GI Reports no additional complaints Reports no additional complaints Physical exam (Primary Care) Vital Signs: Last Vital Signs Temp 98.8 F 06/13/24 12:52 Pulse 81 06/13/24 12:52 Resp 18 06/13/24 12:52 BP 140/86 H 06/13/24 12:52 Pulse Ox 97 06/13/24 12:52 Oxygen Delivery Method Room Air 06/13/24 12:52 BMI result Body Mass Index 29.4 Tobacco/Smoking Status: Tobacco use Status Tobacco use date assessed 06/13/24 06/13/24 12:57 Patient Tobacco Use Status Never used Tobacco 06/13/24 12:57 e-Cigarette/Vaping Use Never Used 06/13/24 12:57 PHQ-9: PHQ-9 Score PHQ-9: Total score 5 06/13/24 13:24 Depression Screening Interpretation: Negative Thrive Assessment: Date of Thrive Assessment Date Thrive assessed 06/13/24 06/13/24 12:57 Currently or been in a relationship where the following occur: No concerns reported Const General: no acute distress HENMT Head: Yes normal to inspection Eyes General: appearance normal, both eyes and all related structures Resp Effort & Inspection: normal respiratory effort Auscultation: clear to auscultation bilaterally Cardio Rhythm: regular rhythm Heart sounds: S1 normal heart sound present and S2 normal heart sound present GI Inspection: Yes normal to inspection Palpation (GI): Soft to palpation Percussion: Yes normal to percussion Auscultation: normal bowel sounds Extrem Other: There is decreased range of motion on both shoulders left more than right. There is anterolateral aspect tenderness of left shoulder. no joint swelling Coding Level of Care Code Est Pt Level 4 (72273) Diagnoses Acute pain of both shoulders M25.511; M25.512 Chronicity: acute Annual physical exam Z00.00 Hyperlipidemia E78.5 Elevated blood pressure reading in office without diagnosis of hypertension R03.0 Additional Codes RICK-7 Assessment Billing - RICK-7 Assessment Tool: RICK-7 Assessment 50021 ([id number]) PHQ-9 - 55989 - PHQ-9 Billing: Yes ([id number]) Assessment & Plan Assessment & Plan (1) Bilateral shoulder pain: Code(s): M25.511 - Pain in right shoulder; M25.512 - Pain in left shoulder Category: Medical Qualifiers: Chronicity: acute Qualified Code(s): M25.511 - Pain in right shoulder; M25.512 - Pain in left shoulder Plan: Obtain x-rays of both shoulders continue physical therapy. (2) Annual physical exam: Code(s): Z00.00 - Encounter for general adult medical examination without abnormal findings Category: Medical Plan: Patient will return for PE (3) Hyperlipidemia: Code(s): E78.5 - Hyperlipidemia, unspecified Category: Medical Plan: Continue rosuvastatin (4) Elevated blood pressure reading in office without diagnosis of hypertension: Code(s): R03.0 - Elevated blood-pressure reading, without diagnosis of hypertension Category: Medical Plan: Low-sodium diet increase physical activity discussed with the patient follow-up in 1 month. Patient will have a fasting blood test today Orders: Orders Lipid Panel Today E78.5 - Hyperlipidemia, unspecified, Z00.00 - Encounter for general adult medical examination without abnormal findings PSA,Total (Free>4and<10) Today E78.5 - Hyperlipidemia, unspecified, Z00.00 - Encounter for general adult medical examination without abnormal findings XR Shoulder Kal min 2V Today M25.511 - Pain in right shoulder, M25.512 - Pain in left shoulder Comprehensive [place]. Panel Fast Today E78.5 - Hyperlipidemia, unspecified, Z00.00 - Encounter for general adult medical examination without abnormal findings Complete Blood Count Auto Diff Today E78.5 - Hyperlipidemia, unspecified, Z00.00 - Encounter for general adult medical examination without abnormal findings
[2024-06-13 12:52] VITALS: BP 140/86; PULSE 81; RESP 18; TEMP 37.1; O2SAT 97; BMI 29.4
== END 2024-06-13 16:05 | disposition home or self-care (01) ==
LOC: HO.HMCC 12:48
PROVIDERS: PCP Internal Medicine; Visit Provider Internal Medicine
DX: M25.511 Pain in right shoulder (principal); M25.512 Pain in left shoulder; Z00.00 Encounter for general adult medical examination without abnormal findings; E78.5 Hyperlipidemia, unspecified; R03.0 Elevated blood-pressure reading, without diagnosis of hypertension

== ENCOUNTER → 2024-06-13 12:48 | Outpatient (BNVA) | payer BC, SELFPAY | PROVIDERS: PCP Internal Medicine; Visit Provider Internal Medicine | DX: M25.511 Pain in right shoulder (principal); M25.512 Pain in left shoulder; E78.5 Hyperlipidemia, unspecified; R03.0 Elevated blood-pressure reading, without diagnosis of hypertension; Z79.899 Other long term (current) drug therapy | CPT/HCPCS: 96127 ==

== ENCOUNTER 2024-06-14 07:01 | Outpatient (REF) | payer BC, SELFPAY ==
[2024-06-14 11:43] LABS: MANUAL DIFF FLAG NO
[2024-06-14 12:08] LABS: Basophils Absolute Auto 0.1 X10*3/uL (0.0-0.2); Basophils Percent Auto 0.8 % (0-2); Eosinophils Absolute Auto 0.2 X10*3/uL (0.0-0.4); Eosinophils Percent Auto 2.8 % (0-4); Hematocrit 44.4 % (42.0-52.0); Hemoglobin 14.3 g/dl (14.0-18.0); Imm Gran Abs Auto 0.02 X10*3/uL (0.00-0.03); Imm Gran Pct Auto 0.3 % (0.0-0.4); Lymphocytes Absolute Auto 2.2 X10*3/uL (1.2-4.9); Lymphocytes Percent Auto 30.7 % (20-40); Mean Corpuscular HGB Conc 32.2 g/dl (31.0-36.0); Mean Corpuscular Hemoglobin 31.5 pg (27.0-33.0); Mean Corpuscular Volume 97.8 fL (80.0-98.0); Mean Platelet Volume 10.5 fL (9.4-12.4); Monocytes Absolute Auto 0.9 X10*3/uL (0.1-1.2); Neutrophils Absolute Auto 3.9 x10*3/uL (2.0-8.3); Neutrophils Percent Auto 53.4 % (45-73); Platelet Count 237 X10*3/uL (160-400); Red Blood Count 4.54 X10*6/uL (4.60-5.80); Red Cell Distribution Width 12.9 % (11.0-16.0); White Blood Count 7.2 X10*3/uL (4.8-10.8)
[2024-06-14 12:46] LABS: PSA,Total (Free>4and<10) 0.63 ng/mL (0.00-4.00)
[2024-06-14 12:49] LABS: Alanine Aminotransferase 16 U/L (0-40); Albumin Level 4.3 g/dL (3.5-5.0); Anion Gap 14 (12-20); Aspartate Amino Transferase 34 U/L (5-37); Bilirubin Total 0.2 mg/dL (0.0-1.0); Blood Urea Nitrogen 23 mg/dL (9-16); Calcium 9.2 mg/dL (8.4-10.2); Carbon Dioxide 24 mmol/L (22-29); Chloride 109 mmol/L (96-108); Cholesterol 234 mg/dL (<200); Estimated Glomerular Filt Rate > 60; Glucose Fasting 107 mg/dL (60-99); HDL Cholesterol 67 mg/dL (>40); LDL Cholesterol Calculated 137 mg/dL (<100); Potassium 4.5 mmol/L (3.3-5.1); Sodium 142 mmol/L (135-145); Total Protein 7.2 g/dL (6.5-8.0); Triglycerides 154 mg/dL (<150)
[2024-06-14 13:12] LABS: Alkaline Phosphatase 64 U/L (39-117)
== END 2024-06-14 07:02 | disposition home or self-care (01) ==
LOC: HO.HMGCLDS 07:01
PROVIDERS: PCP Internal Medicine; Visit Provider Internal Medicine
DX: Z00.00 Encounter for general adult medical examination without abnormal findings (principal); E78.5 Hyperlipidemia, unspecified; Z12.5 Encounter for screening for malignant neoplasm of prostate
CPT/HCPCS: 36415; 80053; 80061; 84153; 85025

== ENCOUNTER 2024-07-11 08:04 | Outpatient (AMB) | payer BC, SELFPAY ==
--- NOTE | 2024-07-11 08:10 | AM.OFFWIN_ITS ---
Intake Vital Signs 07/11/24 08:11 Height 5 ft 9 in Weight 204 lb BMI 30.1 BP 128/88 Blood Pressure Location Rt brachial Position Sitting Pulse 70 Pulse Source Pulse Oximeter Temp 98.1 F Temp Source Oral Pulse Oximetry (%) 96 Oxygen Delivery Method Room Air Intake Visit Reasons: EP LT shoulder pain Intake Note: Pt presents to the office today for c/o left shoulder pain. Pt states this started a few months ago. He states he did a lot of heavy lifting at work. Pt states he is on light duty for work. Pt states he is now experiencing the same amount of pain in his right arm. Patient Tobacco Use Status: Never used Tobacco Allergies No Known Allergies Allergy (Verified 07/11/24 08:19) HPI EP LT shoulder pain HPI Details This is a 64-year-old male patient who presents to the walk-in clinic today with ongoing bilateral shoulder pain. He states that he injured shoulders at work due to heavy lifting/pulling etcetera. [facility] as it is work related. He completed course of physical therapy, and MRI of the left shoulder was ultimately obtained and showed Full-thickness supraspinatus tear, partial myotendinous junction tear, subscap partial tear, medially dislocated biceps tendon, among other findings. He states that he is scheduled next Sunday with provider who is handling his worker's comp, to discuss surgical referral for this. The patient reports that his right shoulder has been largely disregarded, despite having near equally severe pain on that side. He states that although he is on ?light duty? at work, he is often left performing tasks that require him to lift/push/pull heavy items. He states that pain on the right side remains severe, and he is having difficulty with all activity and especially sleeping due to this. He has been taking 800 mg ibuprofen with some moderate relief. [facility] Medical History Hyperlipidemia Normal colonoscopy Surgical History Hx of colonoscopy History of knee surgery Family History Father Liver cancer Colon cancer Mother Alzheimer's dementia Brother History of CVA (cerebrovascular accident) Brother No problems noted. Brother No problems noted. Brother No problems noted. Sister No problems noted. Son No problems noted. Son No problems noted. Son No problems noted. Daughter No problems noted. Social History Housing: House Alcohol intake: current Alcohol intake frequency: holidays/special occasions only Patient Tobacco Use Status: Never used Tobacco e-Cigarette/Vaping Use: Never Used Second Hand Smoke Exposure: No Current occupational status: employed Cognitive needs: No Hearing needs: No Vision needs: Yes Review of Systems Const All systems reviewed & are unremarkable except as noted in HPI and below Physical Exam Vital Signs: Last Vital Signs Temp 98.1 F 07/11/24 08:11 Pulse 70 07/11/24 08:11 BP 128/88 07/11/24 08:11 Pulse Ox 96 07/11/24 08:11 Oxygen Delivery Method Room Air 07/11/24 08:11 BMI result Body Mass Index 30.1 Const General: cooperative and no acute distress Limitations: no limitations HEENT Head: Yes normal to inspection Resp Effort & Inspection: normal respiratory effort Auscultation: clear to auscultation bilaterally Cardio Rate: regular rate Rhythm: regular rhythm Skin General skin exam: no rashes or lesions noted Extrem General: Yes capillary refill normal and Yes no clubbing, cyanosis or edema Right upper extremity: shoulder/upper arm Details: normal to inspection and abnormal ROM Details: pain with active ROM Details: in ABduction, in extension and external rotation- and pain with passive ROM Details: with ABduction, with extension and external rotation- Psych Appearance: grossly normal Mental Status: mental status grossly normal Speech and movement: Normal speech and movement present Assessment & Plan Assessment & Plan (1) Bilateral shoulder pain: Code(s): M25.511 - Pain in right shoulder; M25.512 - Pain in left shoulder Qualifiers: Chronicity: acute Qualified Code(s): M25.511 - Pain in right shoulder; M25.512 - Pain in left shoulder Plan: Patient has ongoing bilateral shoulder pain status post work injury. He underwent MRI for left shoulder following extensive course of physical therapy, which revealed significant tearing as noted above. His right shoulder is in a similar amount of ongoing pain, however he has not had any imaging done on this. He continues to use NSAIDs and perform home exercise program as instructed by physical therapist, however his pain is impacting work, ADLs, and particularly sleep. He will be following up with worker's comp provider through [facility] next week. I encouraged him to discuss first, surgical referral for his left shoulder based on MRI results, and additionally, possible imaging for that right shoulder, as testing today indicates likely tear on that side as well. In the meantime, I have encouraged he continue to utilize NSAIDs, Tylenol, heat/ice application as tolerated/needed. I will also prescribe him a short course of muscle relaxers to take at bedtime. We reviewed indications, use, possible side effects of this medication. Work note provided. All questions were answered and patient verbalizes understanding and agrees to plan. Medications: New cyclobenzaprine 10 mg PO BEDTIME 7 days PRN 7 tabs 0RF muscle spasm M25.511 - Pain in right shoulder, M25.512 - Pain in left shoulder Coding Level of Care Code Est Pt Level 4 (76036) Diagnoses Acute pain of both shoulders M25.511; M25.512 Chronicity: acute
[2024-07-11 08:11] VITALS: BP 128/88; PULSE 70; TEMP 36.7; O2SAT 96; BMI 30.1
== END 2024-07-11 09:09 | disposition home or self-care (01) ==
PROVIDERS: PCP Internal Medicine; Visit Provider Nurse Practitioner Family
DX: M25.511 Pain in right shoulder (principal); M25.512 Pain in left shoulder

== ENCOUNTER → 2024-07-11 08:04 | Outpatient (BNVA) | payer BC, SELFPAY | PROVIDERS: PCP Internal Medicine; Visit Provider Nurse Practitioner Family ==

== ENCOUNTER 2024-12-03 07:32 | Outpatient (REF) | payer BC, SELFPAY ==
--- OUTSIDE RECORDS SUMMARY | 2024-03-26 05:00 | XMS_ITS ---
Author Organization [facility] Address [address] [place] [address] Care Team Providers Care Scoop Machine Operator Name Role Phone Johanny Steele M.D. Primary Care Provider Elan Begum Unavailable [phone] REASON FOR VISIT RECALL SCREENING COLO, 03/26/2024 @ 9AM WELLPOINT [id number] Encounters Encounter Location Date Provider Diagnosis OUTPT GI [address] [place], [place] [id number] 03/26/2024 Elan Porras Personal history of adenomatous [...] * WILIAM GARAY MDOB:1960 (64 yo M)Acc No.[id number]:03/26/2024 Patient: WILIAM FULTON Provider: Roxy Porras MD :1960 A ge:63 Y S ex:Male Date:03/26/2024 Address:[address] [place], [place] [id number] Pcp:Johanny Steele M.D. Subjective: * Chief Complaints: * R ECALL SCREENING COLO, 03/26/2024 @ 9AM WELLPOINT [id number] * Medical History: * Surgical History: * Hospitalization/Major Diagno stic Procedure: * Medications: Assessment: * Assessment: 1. P ersonal history of adenomatous and serrated colon polyps - Z86.0101 (Primary) ?2. A denoma of descending colon - D12.4 3 . A denoma of sigmoid colon - D12.5 Plan: * Treatment: * Procedure Codes: 4 5385 LESION REMOVAL [id number] Moderate sedation services provided by the same physician or other qualified health home care provider performing a gastrointestinal endoscopic service that sedation supports, requiring the presence of an independent trained observer to assist in the monit * Follow Up: 5 yrs Billing Information: * Procedure Codes: 16738 LESION REMOVAL COLONOSCOPY. G0500 Moderate sedation services provided by the same physician or other qualified health home care provider performing a gastrointestinal endoscopic service that sedation supports, requiring the presence of an independent trained observer to assist in the monit. * Electronic signature of Yaya Porras MD on 12/03/2024 at 07:35 AM EDT Sign off status: Pending * Provider: Roxy Porras MD Date: 0 03/26/2024 Generated for Lior oliveira/Ronen/Solosmitting on: 1 07:35 AM EDT
--- OUTSIDE RECORDS SUMMARY | 2024-12-03 07:35 | XMS_ITS | Patient Health Record ---
Author Organization [facility] Address [address] [place] [address] Care Team Providers Care Physician Office Rep Name Role Phone Viridiana SANCHEZ, Velvet Primary Care Provider Chase Cannon Jr Reason For Referral No Information Medications Medication SIG (Take, Route, Frequency, Duration) Notes Start Date End Date Status Colyte with Flavor Packs 240 GM As directed Orally Over the specified time.; Duration: 1 day(s) Active Social History Tobacco Use: Social History Observation Description Date Details (start date - stop date) Never Smoker NA - NA Tobacco Use/Smoking Question Answer Notes Patient is a nonsmoker Alcohol Screen Question Answer Notes Did you have a drink contain ing alcohol in the past year? Yes How often did you have a dri nk containing alcohol in the past year? Monthly or less (1 point) How many drinks did you have on a typical day when you were drinking in the past year? 1 or 2 drinks (0 point) How often did you have 6 or more drinks on one occasion in the past year? Never (0 point) Points 1 Interpretation Negative Problems Problem Type SNOMED Code ICD Code Onset Dates Problem Status W/U Status Risk Notes Problem Colon cancer screening (567992509) Colon cancer screening (Z12.11) Active confirmed Problem Pre-procedure evaluation check (823651739) Encounter for other preprocedural examination (Z01.818) Active confirmed Plan Of Treatment Future Test Test Name Order Date COLONOSCOPY 06/22/2016 Insurance Providers Payer Name Payer Address Payer Phone Subscriber Number Group Number Insured Name Patient Relationship to Insured Coverage Start Date Coverage End Date HMO BLUE [employer] CLAIMS [address] [place] [address] [id number] WILIAM GARAY Self - patient is the insured Medical (General) History Surgical History Surgery Date(Month/Year) right knee 2002 finger surgery
--- OUTSIDE RECORDS SUMMARY | 2024-12-03 07:36 | XMS_ITS | Patient Health Record ---
Author Organization [facility] Address [address] [place] [id number] Care Team Providers Care Inventory Manager Name Role Phone Johanny Steele M.D. Primary Care Provider Unava ilDanielito Falk Unavailable [phone] Results Component Value Reference Range Notes SURGICAL PATHOLOGY REPORT Reviewed date:04/19/2024 04:01:15 PM Interpretation: Performing Lab: Notes/Report: SURGICAL PATHOLOGY REPORT See Below For Report Patient Name: WILIAM GARAY : 1960 Sex:Male Location: [facility] Factory Representative(s): [address] [place] [address]- Ordering Physician: DANIELITO PORRAS MD Anatomic Pathology Results Collected 03/26/2024 11:25 date/time: MARCIAL Hodge MD, Neeta Received 03/26/2024 14:33 Pathologist: Date/Time: EST SURGICAL PATHOLOGY REPORT - 03/27/2024 16:16 EST - Auth (Verified) DIAGNOSIS: A. DESCENDING COLON, BIOPSY: Tubular adenoma. B. SIGMOID COLON, BIOPSY: Colonic mucosa with fresh hemorrhage. Neeta Hodge MD, PhD (Electronic Signature) Signed On: 03/27/2024 16:16 EST SZ /DO SPECIMEN SOURCE: A descending polyp B sigmoid stalk bx CLINICAL INFORMATION: Diagnosis/Clinical Information: surveillance Post-Op Diagnosis: Procedure: colonoscopy GROSS EXAMINATION: A. The specimen is received in formalin, labeled with the patient's name, MR number and descending polyp , and consists of 1 irregular roman soft tissues, measuring 0.4 x 0.3 x 0.1 cm. The specimen is entirely submitted in cassette A. B. The specimen is received in formalin, labeled with the patient's name, MR number and sigmoid , and consists of 1 irregular red-brown soft tissues, measuring 0.3 x 0.3 x 0.1 cm. The specimen is entirely submitted in cassette B. JR /JR Reason For Referral No Information Medications Medication SIG (Take, Route, Frequency, Duration) Notes Start Date End Date Status Golytely - powder for reconstitution 240 mL orally every 15 minutes; Duration: 16 dose(s) 06/07/2018 Active Golytely - powder for reconstitution 240 mL orally every 15 minutes; Duration: 16 dose(s) 02/22/2024 Active Social History Social History Additional Details Category Social Info Options Details Social History Alcohol: No Drug use: No Exercise: Yes Checked Cholesterol levels No Seat belt usage Yes Gun in house No Encounters Encounter Location Date Provider Diagnosis [facility] [address] [place], [place] [id number] 03/26/2024 Danielito Porras Personal history of adenomatous and serrated colon polyps Z86.0101 ; Adenoma of descending colon D12.4 and Adenoma of sigmoid colon D12.5 [facility] [address] [facility] [address] [place], [place] [id number] 02/22/2024 Danielito Porras Assessments Encounter Date Diagnosis (ICD Code) Assessment Notes Treatment Notes Treatment Clinical Notes Section Notes 03/26/2024 Adenoma of descending colon (ICD-10 - D12.4) 03/26/2024 Personal history of adenomatous and serrated colon polyps (ICD-10 - Z86.0101) 03/26/2024 Adenoma of sigmoid colon (ICD-10 - D12.5) Plan Of Treatment No Information Insurance Providers Payer Name Payer Address Payer Phone Subscriber Number Group Number Insured Name Patient Relationship to Insured Coverage Start Date Coverage End Date [facility] [address] [place] [address] [id number] COLON, WILIAM Self - patient is the insured
[2024-12-03 10:13] LABS: Appearance Urine Turbid; Glucose Urine UA Negative (Negative); PH 6.0 (5.0-9.0); Specific Gravity - Urine 1.025 (1.005-1.025)
[2024-12-03 10:47] LABS: MANUAL DIFF FLAG NO
[2024-12-03 10:52] LABS: Hematocrit 44.9 % (42.0-52.0); Hemoglobin 14.8 g/dl (14.0-18.0); Imm Gran Abs Auto 0.03 X10*3/uL (0.00-0.03); Imm Gran Pct Auto 0.5 % (0.0-0.4); Lymphocytes Absolute Auto 2.6 X10*3/uL (1.2-4.9); Mean Corpuscular HGB Conc 33.0 g/dl (31.0-36.0); Mean Corpuscular Hemoglobin 31.6 pg (27.0-33.0); Mean Corpuscular Volume 95.7 fL (80.0-98.0); NRBC Abs Auto 0.000 X10*3/uL (0.0-0.012); NRBC Pct Auto 0.0 /100WBC (0.0-0.2); Platelet Count 242 X10*3/uL (160-400); Red Blood Count 4.69 X10*6/uL (4.60-5.80); White Blood Count 6.6 X10*3/uL (4.8-10.8)
[2024-12-03 11:06] LABS: Alanine Aminotransferase 19 U/L (0-40); Albumin Level 4.5 g/dL (3.5-5.0); Alkaline Phosphatase 72 U/L (39-117); Anion Gap 10 (12-20); Aspartate Amino Transferase 30 U/L (5-37); Blood Urea Nitrogen 21 mg/dL (9-16); Calcium 9.1 mg/dL (8.4-10.2); Carbon Dioxide 29 mmol/L (22-29); Chloride 107 mmol/L (96-108); Cholesterol 179 mg/dL (<200); Estimated Glomerular Filt Rate 60; HDL Cholesterol 59 mg/dL (>40); Potassium 4.6 mmol/L (3.3-5.1); Sodium 141 mmol/L (135-145); Total Protein 7.3 g/dL (6.5-8.0); Triglycerides 120 mg/dL (<150)
[2024-12-03 11:20] LABS: PSA,Total (Free>4and<10) 0.56 ng/mL (0.00-4.00)
== END 2024-12-03 07:33 | disposition home or self-care (01) ==
LOC: HO.HMGCLDS 07:32
PROVIDERS: PCP Internal Medicine; Visit Provider Internal Medicine
DX: Z00.00 Encounter for general adult medical examination without abnormal findings (principal); E78.5 Hyperlipidemia, unspecified; Z12.5 Encounter for screening for malignant neoplasm of prostate
CPT/HCPCS: 36415; 80053; 80061; 81001; 84153; 85025

== ENCOUNTER 2024-12-12 11:14 | Outpatient (AMB) | payer BC, SELFPAY ==
--- OUTSIDE RECORDS SUMMARY | 2024-03-26 05:00 | XMS_ITS ---
Author Organization [facility] Address [address] [place] [address] Care Team Providers Care Airplane Engineer Name Role Phone Johanny Steele M.D. Primary Care Provider Elan Begum Unavailable [phone] REASON FOR VISIT RECALL SCREENING COLO, 03/26/2024 @ 9AM WELLPOINT [id number] Encounters Encounter Location Date Provider Diagnosis OUTPT GI [address] [place], [place] [id number] 03/26/2024 Elan Porras Personal history of adenomatous [...] * WILIAM GARAY MDOB:1960 (64 yo M)Acc No.[id number]:03/26/2024 Patient: WILIAM FULTON Provider: Roxy Porras MD :1960 A ge:63 Y S ex:Male Date:03/26/2024 Address:[address] [place], [place] [id number] Pcp:Johanny Steele M.D. Subjective: * Chief Complaints: * R ECALL SCREENING COLO, 03/26/2024 @ 9AM WELLPOINT [id number] * Medical History: * Surgical History: * Hospitalization/Major Diagno stic Procedure: * Medications: Assessment: * Assessment: 1. P ersonal history of adenomatous and serrated colon polyps - Z86.0101 (Primary) ?2. A denoma of descending colon - D12.4 3 . A denoma of sigmoid colon - D12.5 Plan: * Treatment: * Procedure Codes: 4 5385 LESION REMOVAL [id number] Moderate sedation services provided by the same physician or other qualified health child care supervisor performing a gastrointestinal endoscopic service that sedation supports, requiring the presence of an independent trained observer to assist in the monit * Follow Up: 5 yrs Billing Information: * Procedure Codes: 26450 LESION REMOVAL COLONOSCOPY. G0500 Moderate sedation services provided by the same physician or other qualified health child care supervisor performing a gastrointestinal endoscopic service that sedation supports, requiring the presence of an independent trained observer to assist in the monit. * Electronic signature of Yaya Porras MD on 12/12/2024 at 12:49 PM EDT Sign off status: Pending * Provider: Roxy Porras MD Date: 0 03/26/2024 Generated for Lior oliveira/Ronen/eTmikeysmitting on: 1 12:49 PM EDT
[2024-12-12 11:17] VITALS: BP 138/88; PULSE 72; RESP 17; TEMP 36.6; O2SAT 97; BMI 31.0
--- NOTE | 2024-12-12 11:17 | A.OFFPC_ITS ---
Vital Signs 12/12/24 11:17 Height 5 ft 9 in Weight 210 lb BMI 31.0 BP 138/88 Blood Pressure Location Lt brachial Position Sitting Respiration 17 Pulse 72 Pulse Source Pulse Oximeter Temp 97.8 F Temp Source Oral Pulse Oximetry (%) 97 Oxygen Delivery Method Room Air Intake Visit Reasons: PE Intake Note: Pt is here today for PE. Allergies No Known Allergies Allergy (Verified 12/12/24 11:18) Medication List - Last Reconciled 12/12/24 by Brandie Huang MD rosuvastatin 5 mg PO DAILY Tobacco use date assessed: 12/12/24 Fall risk assessment: No Falls in past year Last assessed Fall Risk: 12/12/24 Dental Screening Dental Screen Date: 06/13/24 HPI PE HPI Details Patient presents for physical. [facility] Medical History (Updated 12/12/24 @ 11:56 by Brandie Huang MD) Annual physical exam Family history of colon cancer requiring screening colonoscopy Hyperlipidemia Normal colonoscopy Surgical History Hx of shoulder surgery Hx of colonoscopy History of knee surgery Family History Father Liver cancer Colon cancer Mother Alzheimer's dementia Brother History of CVA (cerebrovascular accident) Brother No problems noted. Brother No problems noted. Brother No problems noted. Sister No problems noted. Son No problems noted. Son No problems noted. Son No problems noted. Daughter No problems noted. Social History Housing: House Alcohol intake: current Alcohol intake frequency: holidays/special occasions only Patient Tobacco Use Status: Never used Tobacco e-Cigarette/Vaping Use: Never Used Second Hand Smoke Exposure: No service: No Current occupational status: employed Cognitive needs: No Hearing needs: No Vision needs: Yes Questionnaire PHQ-9 Over the last 2 weeks, how often have you been bothered by any of the following problems? 1. Little interest or pleasure in doing things: nearly every day 2. Feeling down, depressed, or hopeless: several days 3. Trouble falling or staying asleep, or sleeping too much: several days 4. Feeling tired or having little energy: not at all 5. Poor appetite or overeating: not at all 6. Feeling bad about yourself - or that you are a failure or have let yourself or your family down: not at all 7. Trouble concentrating on things, such as reading the newspaper or watching television: not at all 8. Moving or speaking so slowly that other people could have noticed. Or the opposite - being so fidgety or restless that you have been moving around a lot more than usual: not at all 9. Thoughts that you would be better off or of hurting yourself in some way: not at all Total score: 5 Depression Screening Interpretation: Negative Depression Screening Done: Yes Source: Developed by Drs. Armando Jimenes, Abigail Faye, Rancho Dorsey and colleagues, with an educational marjorie from [employer]. Thrive Questionnaire Date Thrive assessed: 06/13/24 I am a: Patient What is your living situation today?: I have a steady place to live Within the past 12 months, did the food you bought not last and you didn't have the money to get more?: Never true Within the past 12 months, did you worry whether your food would run out before you got money to buy more?: Never true Do you have trouble paying for medicines?: No Do you have trouble getting transportation to medical appointments?: No Do you have trouble paying your heating and electricity bill?: No Do you have trouble taking care of your child, family member or friend?: No Do you have trouble with day-to-day activities such as bathing, preparing meals, shopping, managing finances, etc.?: No Are you currently unemployed and looking for a job?: No Are you interested in more education?: No Please select the resources that you would like help with: None Currently or been in a relationship where the following occur: No concerns reported THRIVE Score: 0 RICK-7 AMB Questionnaire RICK-7 Date RICK - 7 assessed: 06/13/24 Feeling nervous, anxious, or on edge: 0 = Not at all Not being able to stop or control worryin = Not at all Worrying too much about different things: 0 = Not at all Trouble relaxin = Not at all Being so restless that it is hard to sit still: 0 = Not at all Becoming easily annoyed or irritable: 0 = Not at all Feeling afraid as if something awful might happen: 0 = Not at all Total RICK-7 score (0-4 normal; 5-9 mild; 10-14 moderate; 15-21 severe): 0 Source: Developed by Drs. Armando Jimenes, Abigail Faye, [place] and colleagues, with an educational marjorie from [employer]. Review of Systems Const All systems reviewed & are unremarkable except as noted in HPI and below Eyes Reports no additional complaints ENT Reports no additional complaints Card Reports no additional complaints Resp Reports no additional complaints GI Reports no additional complaints Reports no additional complaints Physical exam (Primary Care) Vital Signs: Last Vital Signs Temp 97.8 F 12/12/24 11:17 Pulse 72 12/12/24 11:17 Resp 17 12/12/24 11:17 BP 138/88 12/12/24 11:17 Pulse Ox 97 12/12/24 11:17 Oxygen Delivery Method Room Air 12/12/24 11:17 BMI result Body Mass Index 31.0 Tobacco/Smoking Status: Tobacco use Status Tobacco use date assessed 12/12/24 12/12/24 11:18 Patient Tobacco Use Status Never used Tobacco 12/12/24 11:17 e-Cigarette/Vaping Use Never Used 12/12/24 11:17 PHQ-9: PHQ-9 Score PHQ-9: Total score 5 12/12/24 11:18 Depression Screening Interpretation: Negative Thrive Assessment: Date of Thrive Assessment Date Thrive assessed 06/13/24 12/12/24 11:17 Currently or been in a relationship where the following occur: No concerns reported Const General: no acute distress HENSD Head: Yes normal to inspection Ears: hearing grossly normal bilaterally Face and sinus: Yes normal facial exam Throat: Yes posterior oropharynx normal Eyes General: appearance normal, both eyes and all related structures Neck Neck: Yes no lymphadenopathy and Yes supple Resp Effort & Inspection: normal respiratory effort Auscultation: clear to auscultation bilaterally Cardio Rhythm: regular rhythm Heart sounds: S1 normal heart sound present and S2 normal heart sound present GI Inspection: Yes normal to inspection Palpation (GI): Soft to palpation Percussion: Yes normal to percussion Auscultation: normal bowel sounds Coding Level of Care Code Est Pt Prev Care 40-64y(14530) Diagnoses Hyperlipidemia E78.5 Annual physical exam Z00.00 Assessment & Plan Assessment & Plan (1) Hyperlipidemia: Code(s): E78.5 - Hyperlipidemia, unspecified Category: Medical Plan: cont Crestor (2) Annual physical exam: Code(s): Z00.00 - Encounter for general adult medical examination without abnormal findings Category: Medical Plan: Well-balanced diet regular physical activity discussed with the patient. Low- sodium diet was recommended. Patient will return in 1 month to monitor blood pressure. He is due for colonoscopy in June 2026
--- OUTSIDE RECORDS SUMMARY | 2024-12-12 12:49 | XMS_ITS | Patient Health Record ---
Author Organization [facility] Address [address] [place] [address] Care Team Providers Care Shredding Machine Tender Name Role Phone Viridiana SANCHEZ, Velvet Primary [...] Status Risk Notes Problem Colon cancer screening (764771099) Colon cancer screening (Z12.11) Active confirmed Problem Pre-procedure evaluation check (460926355) Encounter for other preprocedural examination (Z01.818) Active confirmed Plan Of Treatment Future Test Test Name Order Date COLONOSCOPY 06/22/2016 Insurance Providers Payer Name Payer Address Payer Phone Subscriber Number Group Number Insured Name Patient Relationship to Insured Coverage Start Date Coverage End Date HMO BLUE [employer] PROFESSIONAL CLAIMS [address] [place] [address] [id number] WILIAM GARAY Self - patient is the insured Medical (General) History Surgical History Surgery Date(Month/Year) right knee 2002 finger surgery
--- OUTSIDE RECORDS SUMMARY | 2024-12-12 12:49 | XMS_ITS | Patient Health Record ---
Author Organization [facility] Address [address] [place] [address] Care Team Providers Care Pulmonary Physical Therapist Name Role Phone Johanny Steele M.D. Primary Care Provider Unava ilDanielito Falk Unavailable [phone] Results Component Value Reference Range Notes SURGICAL PATHOLOGY REPORT Reviewed date:04/19/2024 04:01:15 PM Interpretation: Performing Lab: Notes/Report: SURGICAL PATHOLOGY REPORT See Below For Report Patient Name: WILIAM GARAY : 1960 Sex:Male Location: [facility] Head Baggage Porter(s): [address] [place] [address]- Ordering Physician: DANIELITO PORRAS MD Anatomic Pathology [...] No Encounters Encounter Location Date Provider Diagnosis [facility] [address] [place], [place] [id number] 03/26/2024 Danielito Porras Personal history of adenomatous and serrated colon polyps Z86.0101 ; Adenoma of descending colon D12.4 and Adenoma of sigmoid colon D12.5 [facility] [address] [facility] [address] [place], [place] [phone] 02/22/2024 Danielito Porras Assessments Encounter Date Diagnosis [...] Insured Coverage Start Date Coverage End Date [facility] [address] [place] [address] [phone] [id number] COLON, WILIAM Self - patient is the insured
== END 2024-12-12 12:03 | disposition home or self-care (01) ==
LOC: HO.HMCC 11:15
PROVIDERS: PCP Internal Medicine; Visit Provider Internal Medicine
DX: Z00.00 Encounter for general adult medical examination without abnormal findings (principal); E78.5 Hyperlipidemia, unspecified

== ENCOUNTER 2025-01-30 11:27 | Outpatient (AMB) | payer BC, SELFPAY ==
--- OUTSIDE RECORDS SUMMARY | 2024-03-26 04:00 | XMS_ITS ---
Author Organization [facility] Address [address] [place] [address] Care Team Providers Care Can Piler Name Role Phone Johanny Steele M.D. Primary Care Provider Elan Begum Unavailable [phone] REASON FOR VISIT RECALL SCREENING COLO, 03/26/2024 @ 9AM WELLPOINT [id number] Encounters Encounter Location Date Provider Diagnosis OUTPT GI [address] [place], [place] [id number] 03/26/2024 Elan Porras Personal history of adenomatous and serrated colon polyps Z86.0101 ; Adenoma of descending colon D12.4 and Adenoma of sigmoid colon D12.5 Assessments Encounter Date Diagnosis (ICD Code) Assessment Notes Treatment Notes Treatment Clinical Notes Section Notes 03/26/2024 Personal history of adenomatous and serrated colon polyps (ICD-10 - Z86.0101) 03/26/2024 Adenoma of descending colon (ICD-10 - D12.4) 03/26/2024 Adenoma of sigmoid colon (ICD-10 - D12.5) Plan Of Treatment Next Appt Details Follow Up: 5 yrs, Reason: Progress Notes * WILIAM GARAY MDOB:1960 (64 yo M)Acc No.[id number]:03/26/2024 Patient: WILIAM FULTON Provider: Roxy Porras MD :1960 A ge:63 Y S ex:Male Date:03/26/2024 Address:[address] [place], [place] [id number] Pcp:Johanny Steele M.D. Subjective: * Chief Complaints: * R ECALL SCREENING COLO, 03/26/2024 @ 9AM WELLPOINT [id number] * Medical History: * Surgical History: * Hospitalization/Major Diagno stic Procedure: * Medications: Assessment: * Assessment: 1. P ersonal history of adenomatous and serrated colon polyps - Z86.0101 (Primary) ?2. A denoma of descending colon - D12.4 3 . A denoma of sigmoid colon - D12.5 Plan: * Treatment: * Procedure Codes: 4 5385 LESION REMOVAL [id number] Moderate sedation services provided by the same physician or other qualified health pharmacy customer care specialist performing a gastrointestinal endoscopic service that sedation supports, requiring the presence of an independent trained observer to assist in the monit * Follow Up: 5 yrs Billing Information: * Procedure Codes: 42018 LESION REMOVAL COLONOSCOPY. G0500 Moderate sedation services provided by the same physician or other qualified health pharmacy customer care specialist performing a gastrointestinal endoscopic service that sedation supports, requiring the presence of an independent trained observer to assist in the monit. * Electronic signature of Yaya Porras MD on 01/30/2025 at 01:32 PM EST Sign off status: Pending * Provider: Roxy Porras MD Date: 0 03/26/2024 Generated for Lior oliveira/Ronen/Solosmitting on: 1 04/02/2024 01:32 PM EST
[2025-01-30 11:29] VITALS: BP 128/80; PULSE 74; RESP 18; O2SAT 97; BMI 31.0
--- NOTE | 2025-01-30 11:29 | A.OFFPC_ITS ---
Vital Signs 01/30/25 11:29 Height 5 ft 9 in Weight 210 lb BMI 31.0 BP 128/80 Blood Pressure Location Lt brachial Position Sitting Respiration 18 Pulse 74 Pulse Source Pulse Oximeter Pulse Oximetry (%) 97 Oxygen Delivery Method Room Air Intake Visit Reasons: 1 mo follow up Intake Note: Pt is here today for 1 month follow up visit. Cream Tester Required: No Allergies No Known Allergies Allergy (Verified 01/30/25 11:31) Medication List - Last Reconciled 01/30/25 by Brandie Huang MD rosuvastatin 5 mg PO DAILY Tobacco use date assessed: 01/30/25 Dental Screening Dental Screen Date: 06/13/24 HPI 1 mo follow up HPI Details Patient presents for follow-up. Hyperlipidemia controlled on rosuvastatin. Patient has been increasing physical activity and falling low sodium diet. [facility] Medical History (Updated 01/30/25 @ 12:03 by Brandie Huang MD) Elevated blood pressure reading in office without diagnosis of hypertension Annual physical exam Family history of colon cancer requiring screening colonoscopy Hyperlipidemia Normal colonoscopy Surgical History Hx of shoulder surgery Hx of colonoscopy History of knee surgery Family History Father Liver cancer Colon cancer Mother Alzheimer's dementia Brother History of CVA (cerebrovascular accident) Brother No problems noted. Brother No problems noted. Brother No problems noted. Sister No problems noted. Son No problems noted. Son No problems noted. Son No problems noted. Daughter No problems noted. Social History Housing: House Alcohol intake: current Alcohol intake frequency: holidays/special occasions only Patient Tobacco Use Status: Never used Tobacco e-Cigarette/Vaping Use: Never Used Second Hand Smoke Exposure: No service: No Current occupational status: employed Cognitive needs: No Hearing needs: No Vision needs: Yes Questionnaire Thrive Questionnaire Date Thrive assessed: 06/13/24 What is your living situation today?: I have a steady place to live Within the past 12 months, did the food you bought not last and you didn't have the money to get more?: Never true Within the past 12 months, did you worry whether your food would run out before you got money to buy more?: Never true Do you have trouble paying for medicines?: No Do you have trouble getting transportation to medical appointments?: No Do you have trouble paying your heating and electricity bill?: No Do you have trouble taking care of your child, family member or friend?: No Do you have trouble with day-to-day activities such as bathing, preparing meals, shopping, managing finances, etc.?: No Are you currently unemployed and looking for a job?: No Are you interested in more education?: No Currently or been in a relationship where the following occur: No concerns reported THRIVE Score: 0 RICK-7 AMB Questionnaire RICK-7 Date RICK - 7 assessed: 06/13/24 Source: Developed by Drs. Armando Jimenes, Abigail Faye, [place] and colleagues, with an educational marjorie from [employer]. Review of Systems Const All systems reviewed & are unremarkable except as noted in HPI and below Eyes Reports no additional complaints ENT Reports no additional complaints Card Reports no additional complaints Resp Reports no additional complaints GI Reports no additional complaints Physical exam (Primary Care) Vital Signs: Last Vital Signs Pulse 74 01/30/25 11:29 Resp 18 01/30/25 11:29 BP 128/80 01/30/25 11:29 Pulse Ox 97 01/30/25 11:29 Oxygen Delivery Method Room Air 01/30/25 11:29 BMI result Body Mass Index 31.0 Tobacco/Smoking Status: Tobacco use Status Tobacco use date assessed 01/30/25 01/30/25 11:33 Patient Tobacco Use Status Never used Tobacco 01/30/25 11:33 e-Cigarette/Vaping Use Never Used 01/30/25 11:33 Thrive Assessment: Date of Thrive Assessment Date Thrive assessed 06/13/24 01/30/25 11:33 Currently or been in a relationship where the following occur: No concerns reported Const General: no acute distress HENMT Head: Yes normal to inspection Neck Neck: Yes supple Resp Effort & Inspection: normal respiratory effort Auscultation: clear to auscultation bilaterally Cardio Rhythm: regular rhythm Heart sounds: S1 normal heart sound present and S2 normal heart sound present Coding Level of Care Code Est Pt Level 3 (28868) Diagnoses Hyperlipidemia E78.5 Elevated blood pressure reading in office without diagnosis of hypertension R03.0 Assessment & Plan Assessment & Plan (1) Hyperlipidemia: Code(s): E78.5 - Hyperlipidemia, unspecified Category: Medical Plan: Continue Crestor follow-up in 6 months with a fasting labs before (2) Elevated blood pressure reading in office without diagnosis of hypertension: Code(s): R03.0 - Elevated blood-pressure reading, without diagnosis of hypertension Category: Medical Plan: Continue low-sodium diet increase exercise weight loss discussed with the patient Orders: Orders Comprehensive [place]. Panel Fast 6 Months E78.5 - Hyperlipidemia, unspecified, R03.0 - Elevated blood-pressure reading, without diagnosis of hypertension, Z00.00 - Encounter for general adult medical examination without abnormal findings Complete Blood Count Auto Diff 6 Months E78.5 - Hyperlipidemia, unspecified, R03.0 - Elevated blood-pressure reading, without diagnosis of hypertension, Z00.00 - Encounter for general adult medical examination without abnormal findings Lipid Panel 6 Months E78.5 - Hyperlipidemia, unspecified, R03.0 - Elevated blood-pressure reading, without diagnosis of hypertension, Z00.00 - Encounter for general adult medical examination without abnormal findings Medications: Refilled rosuvastatin 5 mg PO DAILY 90 tabs 3RF
--- OUTSIDE RECORDS SUMMARY | 2025-01-30 13:32 | XMS_ITS | Patient Health Record ---
Author Organization [facility] Address [address] [place] [address] Care Team Providers Care Regional Extension Service Specialist Name Role Phone Viridiana SANCHEZ, Velvet Primary Care Provider Chase Cannon Jr Unavailable Reason For Referral No Information Medications Medication SIG (Take, Route, Frequency, Duration) Notes Start Date End Date Status Colyte with Flavor Packs 240 GM Solution Reconstituted As directed Orally Over the specified time.; Duration: 1 day(s) Active Social History Tobacco Use: Social History Observation Description Date Details (start date - stop date) Never Smoker NA - NA Social History Drugs/Alcohol: Social Info Question Answer Notes Alcohol Screen Did you have a drink containing alcohol in the past year? Yes How often did you have a drink containing alcohol in the past year? Monthly or less (1 point) How many drinks did you have on a typical day when you were drinking in the past year? 1 or 2 drinks (0 point) How often did you have 6 or more drinks on one occasion in the past year? Never (0 point) Points 1 Interpretation Negative Tobacco Use: Social Info Question Answer Notes Tobacco Use/Smoking Patient is a nonsmoker Additional Details Category Social Info Options Details Miscellaneous: Marital status: Occupation: apprentice machinist outside Problems Problem Type SNOMED Code ICD Code Onset Dates Problem Status W/U Status Risk Notes Problem Colon cancer screening (775277169) Colon cancer screening (Z12.11) Active confirmed Problem Pre-procedure evaluation check (678021105) Encounter for other preprocedural examination (Z01.818) Active confirmed Plan Of Treatment Future Test Test Name Order Date COLONOSCOPY 06/22/2016 Insurance Providers Payer Name Payer Address Payer Phone Subscriber Number Group Number Insured Name Patient Relationship to Insured Coverage Start Date Coverage End Date O BLUE [employer] PROFESSIONAL CLAIMS [address] [place] [address] [id number] COLONWILIAM Self - patient is the insured Medical (General) History Surgical History Surgery Date(Month/Year) right knee 2002 finger surgery
--- OUTSIDE RECORDS SUMMARY | 2025-01-30 13:33 | XMS_ITS | Patient Health Record ---
Author Organization [facility] Address [address] [place] [address] Care Team Providers Care Associate Professor Of Art History Name Role Phone Johanny Steele M.D. Primary Care Provider Unava ilDanielito Falk Unavailable [phone] Results Component Value Reference Range Notes SURGICAL PATHOLOGY REPORT Reviewed date:04/19/2024 04:01:15 PM Interpretation: Performing Lab: Notes/Report: SURGICAL PATHOLOGY REPORT See Below For Report Patient Name: WILIAM GARAY : 1960 Sex:Male Location: [facility] Bottle Capper(s): [address] [place] [address]- Ordering Physician: DANIELITO PORRAS MD Anatomic Pathology [...] No Encounters Encounter Location Date Provider Diagnosis [facility] GI [address] [place], [place] [phone] 03/26/2024 Danielito Porras Personal history of adenomatous and serrated colon polyps Z86.0101 ; Adenoma of descending colon D12.4 and Adenoma of sigmoid colon D12.5 [facility] [address] [facility] [address] [place], [place] [phone] 02/22/2024 Danielito Porras Assessments Encounter Date Diagnosis [...] Insured Coverage Start Date Coverage End Date [facility] [address] [place] [address] [id number] COLON, WILIAM Self - patient is the insured
== END 2025-01-30 12:04 | disposition home or self-care (01) ==
LOC: HO.HMCC 11:28
PROVIDERS: PCP Internal Medicine; Visit Provider Internal Medicine
DX: E78.5 Hyperlipidemia, unspecified (principal); R03.0 Elevated blood-pressure reading, without diagnosis of hypertension